=== PATIENT | female | born 1995 | race Caucasian/White ===

== ENCOUNTER 2016-08-16 06:40 | Emergency (ER) | payer BC ==
[~2016-08-16] VITALS: Ht 172.7 cm; Wt 62.1 kg
[2016-08-16 06:44] VITALS: TEMP 37.2; Ht 172.7 cm; Wt 62.1 kg
[2016-08-16] MEDS ORDERED: KETOROLAC TROMETHAMINE 30 MG/ML VIAL IV STA (07:07)
[2016-08-16] MEDS ORDERED: SODIUM CHLORIDE 0.9% 1000ML 1,000 ML IV SCH (07:15)
--- NOTE | 2016-08-16 07:22 | EMERGENCY ROOM VISIT NOTE ---
History First contact with patient: 06:46 Chief Complaint: ILLNESS Stated Complaint: CHEST PAIN,FEVER,THROAT PN,BODY ACHES History of Present Illness The patient is a 21 year old female who presents to the Emergency Room with complaints of chest tightness. Symptoms have been going on for 1 day. The pain is a 5/10 central chest pain with radiation into the anterior neck and jaw. No radiation into the arms or back. The pain is worse with exertion and possibly slight better with rest. It is worsened with coughing and breathing. She also has a productive cough, uncertain if sputum is clear or purulent. She also has sore throat that is worse with swallowing. She is also having some nausea but no vomiting. No diarrhea or constipation. She is urinating without difficulty. Last night she took a temperature of 102.1. She did not take Tylenol or NSAIDs. She notes her appetite has been at baseline until 1 day ago. She denies palpitations. She does have shortness of breath at night. No wheezing. No leg swelling. She is having more shortness of breath with exertion. She has not had any recent periods of immobility. She is not on OCP. She is a non-smoker She did not get her flu shot this year. There are no other sick contacts Review of Systems A 10 point review of systems was negative unless stated above. Past Medical/Surgical History None No previous surgeries Family History No history of cardiac or pulmonary disease in parents Mother and maternal grandmother have hypothyroidism Social History Smoking Status: Never Smoker Smokeless Tobacco Use: No Alcohol Use: occasionally (10 units per week) Drug Use: none Marital Status: single Housing Status: lives with roommate Occupation Status: student Current/Historical Medications Scheduled Amoxicillin (Amoxil), 1 CAP PO BID Allergies Coded Allergies: No Known Allergies (Unverified , 08/16/16) Physical Exam Vital Signs Date Time Temp Pulse Resp B/P Pulse Ox O2 Delivery O2 Flow Rate FiO2 08/16/16 10:17 96 18 104/59 97 08/16/16 10:09 96 08/16/16 09:40 99 18 104/59 97 Room Air 08/16/16 08:19 97 18 102/63 99 Room Air 08/16/16 07:33 102 20 105/60 98 Room Air 08/16/16 06:58 109 08/16/16 06:44 37.2 124 20 114/71 99 Room Air Pain Rating (0-10): 5 Physical Exam Constitutional: Vital signs as above were reviewed. Eyes: Pupils equal, round, and reactive to light. Extraocular muscles are intact. No proptosis. No photophobia. ENT: Mucous membranes are moist. No sinus tenderness. TMs are clear bilaterally. Oropharynx is clear. No lymphadenopathy No trismus No thyroid enlargement Cardiovascular: Heart with a regular rate and rhythm. Pulses are palpable and symmetric in all 4 extremities. No pedal edema appreciated. Chest non-tender to palpation Respiratory: Lungs clear to auscultation bilaterally. No wheezes, rales, or rhonchi appreciated. No accessory muscle use. No retractions. No increased work of breathing. GI: Abdomen soft, nontender, nondistended. Normal active bowel sounds. No abdominal hernias appreciated. No rebound. No guarding. No hepatomegaly or splenomegaly : No CVA tenderness appreciated. Musculoskeletal: No midline cervical or vertebral tenderness. No gross deformities. No bony tenderness. No calf swelling or tenderness. Integumentary: Warm, dry, no rashes appreciated. Neurological: Patient awake, alert, and oriented x 3. Cranial nerves two through 12 grossly intact. Motor 5 out of 5 strength bilateral upper and lower extremities. Lymph: No cervical lymphadenopathy appreciated. Medical Decision & Procedures ER Provider Diagnostic Interpretation: [~ rep ct add3]] CHEST 2 VIEWS ROUTINE CLINICAL HISTORY: shortness of breath chest pain dyspnea COMPARISON STUDY: No previous studies for comparison. FINDINGS: The bones soft tissues and hemidiaphragms are normal. The cardiomediastinal silhouette is normal. The lungs are clear. The pulmonary vasculature is normal. IMPRESSION: Negative chest. Electronically signed by: Gómez De Luna M.D. 08/16/2016 8:34 AM Dictated Date/Time: 08/16/2016 8:32 AM Laboratory Results 08/16/16 07:25 Red Blood Count 4.08, Mean Corpuscular Volume 91.7, Mean Corpuscular Hemoglobin 31.6, Mean Corpuscular Hemoglobin Concent 34.5, Mean Platelet Volume 9.0, Neutrophils (%) (Auto) 95.8, Lymphocytes (%) (Auto) 2.4, Monocytes (%) (Auto) 1.5, Eosinophils (%) (Auto) 0.0, Basophils (%) (Auto) 0.0, Neutrophils # (Auto) 24.01, Lymphocytes # (Auto) 0.59, Monocytes # (Auto) 0.37, Eosinophils # (Auto) 0.00, Basophils # (Auto) 0.01 08/16/16 07:25 Test 08/16/16 07:19 08/16/16 07:25 08/16/16 08:04 08/16/16 08:15 Influenza Type A Antigen Neg for Influ A (NEG) Influenza Type B Antigen Neg for Influ B (NEG) White Blood Count 25.42 K/uL (4.8-10.8) Red Blood Count 4.08 M/uL (4.2-5.4) Hemoglobin 12.9 g/dL (12.0-16.0) Hematocrit 37.4 % (37-47) Mean Corpuscular Volume 91.7 fL (80-100) Mean Corpuscular Hemoglobin 31.6 pg (25-34) Mean Corpuscular Hemoglobin Concent 34.5 g/dl (32-36) Platelet Count 286 K/uL (130-400) Mean Platelet Volume 9.0 fL (7.4-10.4) Neutrophils (%) (Auto) 95.8 % Lymphocytes (%) (Auto) 2.4 % Monocytes (%) (Auto) 1.5 % Eosinophils (%) (Auto) 0.0 % Basophils (%) (Auto) 0.0 % Neutrophils # (Auto) 24.01 K/uL (1.4-6.5) Lymphocytes # (Auto) 0.59 K/uL (1.2-3.4) Monocytes # (Auto) 0.37 K/uL (0.11-0.59) Eosinophils # (Auto) 0.00 K/uL (0-0.5) Basophils # (Auto) 0.01 K/uL (0-0.2) RDW Standard Deviation 43.6 fL (36.4-46.3) RDW Coefficient of Variation 13.0 % (11.5-14.5) Immature Granulocyte % (Auto) 0.3 % Immature Granulocyte # (Auto) 0.08 K/uL (0.00-0.02) Nucleated RBC Absolute Count (auto) 0.00 K/uL (0-0) Nucleated Red Blood Cells % 0.0 % Anion Gap 11.0 mmol/L (3-11) Est Creatinine Clear Calc Drug Dose 96.1 ml/min Estimated GFR () 105.2 Estimated GFR (Non- 90.8 BUN/Creatinine Ratio 18.6 (10-20) Calcium Level 9.1 mg/dl (8.5-10.1) Total Bilirubin 2.2 mg/dl (0.2-1) Direct Bilirubin 0.2 mg/dl (0-0.2) Aspartate Amino Transf (AST/SGOT) 21 U/L (15-37) Alanine Aminotransferase (ALT/SGPT) 25 U/L (12-78) Alkaline Phosphatase 86 U/L (45-117) Total Creatine Kinase 201 U/L (26-192) Creatine Kinase MB < 0.5 ng/ml (0.5-3.6) Troponin I < 0.015 ng/ml (0-0.045) Total Protein 7.3 gm/dl (6.4-8.2) Albumin 4.3 gm/dl (3.4-5.0) Monoscreen NEG (NEG) Creatine Kinase MB Ratio (0-3.0) Bedside D-Dimer 157 ng/mlFEU (0-450) Test 08/16/16 09:40 Urine Color YELLOW Urine Appearance CLEAR (CLEAR) Urine pH 5.0 (4.5-7.5) Urine Specific [place] 1.004 (1.000-1.030) Urine Protein NEG (NEG) Urine Glucose (UA) NEG (NEG) Urine Ketones NEG (NEG) Urine Occult Blood NEG (NEG) Urine Nitrite NEG (NEG) Urine Bilirubin NEG (NEG) Urine Urobilinogen NEG (NEG) Urine Leukocyte Esterase NEG (NEG) Medications Administered Medications (Trade) Dose Ordered Sig/[place] Route Start Time Stop Time Status Last Admin Dose Admin Sodium Chloride (Nss 1000ml) 1,000 ml @ 999 mls/hr Q1H1M IV 08/16/16 07:15 08/16/16 11:00 DC 08/16/16 07:31 999 MLS/HR Ketorolac Tromethamine 30 mg 30 mg NOW STAT IV 08/16/16 07:07 08/16/16 07:11 DC 08/16/16 07:31 30 MG Sodium Chloride 1,000 ml @ 999 mls/hr Q1H1M ONCE IV 08/16/16 08:15 08/16/16 09:15 DC 08/16/16 08:29 999 MLS/HR Sodium Chloride (Nss 1000ml) 1,000 ml @ 999 mls/hr Q1H1M ONCE IV 08/16/16 09:45 08/16/16 11:00 DC 08/16/16 09:42 999 MLS/HR ECG Comparison ECG Date: no prior available Change: Sinus tacchycardia, rate 111 No ectopy or pauses No acute ST or T wave changes ED Course 06:50 - Patient evaluated Orders: CBC, BMP, Rapid Strep, Influenza, Monospot 1 L NSS 30 mg IV Toradol 08:00 - Precepted case with Dr. Simon Additional orders: D-dimer, troponin, CK, CKMB and liver function testing 08:15 - Patient re-assessed feeling better 2nd L NSS bolus ordered 09:00 - Labs reviewed; Tbili noted to be 2.2; CPK 202 noted borderline elevated Cardiac enzymes and d-dimer are negative. 09:30 - Reassessed; patient feeling better Spot UA ordered; negative 09:50 - Discussed labs results with patient; patient agreeable to discharge with [facility] follow-up and repeat labs in 2-4 weeks 10:00 - Patient discharged in stable condition Medical Decision A thorough history was obtained, physical examination performed and the EMR was reviewed. The case was reviewed multiple times over with Dr. Dorothea Simon during the patient's ED visit. Patient presents with shortness of breath and chest discomfort with exertion. She is young female so coronary disease is highly unlikely. Fortunately, there were no concerning findings on EKG, cardiac enzymes or chest x-ray to suggest acute cardiac disease as a cause for her symptoms. Given sore throat, she was evaluated for Group A strep. Rapid testing was negative . Monospot was negative though this might be expected given short duration of symptoms. Influenza testing was negative. She did have a leukocytosis at 25. Chest x-ray was normal. Point of care UA was normal. We could not identify a focal source for infection, however, decided on empiric treatment of pharyngitis given the nature of her symptoms. A culture is pending at this time. Patient was treated with 2 L of NSS. She was also treated with IV toradol which did help her discomfort. Interestingly, she was noted to have an isolated elevation of her total bilirubin without elevation in transaminases. The cause is uncertain but we recommend follow-up liver function testing to ensure resolution. She had a borderline CK bump but this may be due to a transient myositis from infection. Again, this should be repeated as an outpatient to trend. Patient was feeling better at discharge. She was given instructions to see [facility] tomorrow and have Liver function and CK repeated in 2-4. Patient was discharged in stable condition. Impression Primary Impression: Exudative pharyngitis Additional Impressions: Total bilirubin, elevated Elevated CK Ruled Out: Pneumonia Departure Information Dispostion Home / Self-Care Condition GOOD Prescriptions Amoxicillin (AMOXIL) 500 Mg Cap 1 CAP PO BID for 10 Days, #20 CAP Prov: Agustín Marrufo MD 08/16/16 Referrals No Doctor, Assigned (PCP) Patient Instructions My [facility] Additional Instructions You came with fevers sore throat and chest tightness. You labs work shows that you do have an infection. We checked a strep test on you which was negative but we will confirm this and treat you presumtively until we have a definitive result. You will be treated with Amoxicillin for 7- 10 days. Your chest x-ray was negative for pneumonia. We checked a test for influenza and mono and these were negative. Your liver function shows that you have a high bilirubin and creatinine kinase. This is likely going to resolve one you get better but you should ask S to repeat labs on you in the coming 2-4 weeks. Otherwise, we treated you with anti-inflammatories and fluids and you felt much better. As such we feel you can safely be discharged home. If your symptoms fail to improve, acutely worsen, please seek medical attention immediately by either calling your primary care provider or going to your nearest emergency department. Otherwise, please see [facility] tomorrow to ensure that you continue to get better. It was a pleasure to be involved in your care and we wish you all the best. Problem Qualifiers
[2016-08-16 07:48] LABS: HEMATOCRIT 37.4 % (37-47); MEAN CELL VOLUME 91.7 fL (80-100); MEAN CORPUSCULAR HEMOGLOBIN 31.6 pg (25-34); MEAN CORPUSCULAR HGB CONC 34.5 g/dl (32-36); PLATELET COUNT 286 K/uL (130-400); RED BLOOD COUNT 4.08 M/uL (4.2-5.4); WHITE BLOOD COUNT 25.42 K/uL (4.8-10.8)
[2016-08-16 07:55] LABS: BLOOD UREA NITROGEN 17 mg/dl (7-18); BUN/CREATININE RATIO 18.6 (10-20); CALCIUM 9.1 mg/dl (8.5-10.1); CARBON DIOXIDE 24 mmol/L (21-32); CHLORIDE 103 mmol/L (98-107); GLUCOSE 133 mg/dl (70-99); POTASSIUM 3.8 mmol/L (3.5-5.1); SODIUM 138 mmol/L (136-145)
[2016-08-16] MEDS: SODIUM CHLORIDE 0.9% 1000ML 1,000 ML IV ONE ×2 (08:15→08:29)
[2016-08-16 08:33] LABS: BASO ABS # 0.01 K/uL (0-0.2); IG% 0.3 %; LYMPH % 2.4 %; LYMPH ABS # 0.59 K/uL (1.2-3.4); MONO % 1.5 %; NEUT % 95.8 %
--- NOTE | 2016-08-16 08:35 | DIAGNOSTIC IMAGING REPORT ---
CHEST 2 VIEWS ROUTINE CLINICAL HISTORY: shortness of breath chest pain dyspnea COMPARISON STUDY: No previous studies for comparison. FINDINGS: The bones soft tissues and hemidiaphragms are normal. The cardiomediastinal silhouette is normal. The lungs are clear. The pulmonary vasculature is normal. IMPRESSION: Negative chest. Electronically signed by: Gómez De Luna M.D. 08/16/2016 8:34 AM Dictated Date/Time: 08/16/2016 8:32 AM
[2016-08-16 08:40] LABS: ALKALINE PHOSPHATASE 86 U/L (45-117); ALT/SGPT 25 U/L (12-78); AST/SGOT 21 U/L (15-37)
[2016-08-16 09:12] LABS: COMPLETE YES
[2016-08-16] MEDS ORDERED: SODIUM CHLORIDE 0.9% 1000ML 1,000 ML IV ONE (09:45)
[2016-08-16 09:59] LABS: URINE APPEARANCE CLEAR (CLEAR); URINE BILIRUBIN NEG (NEG); URINE COLOR YELLOW; URINE NITRITE NEG (NEG); URINE SPECIFIC GRAVITY 1.004 (1.000-1.030); UROBILINOGEN NEG (NEG); ZZUR CULT IF INDIC CLEAN CATCH NO
[2016-08-16 10:00] LABS: MANUAL MICROSCOPIC REQUIRED? NO; REVIEW REQ? NO
[2016-08-16] MEDS ORDERED: AMOX500C3 PO (10:00)
[2016-08-16 10:17] VITALS: BP 104/59; PULSE 96; O2SAT 97
--- NOTE | 2016-08-16 17:42 | EMERGENCY ROOM VISIT NOTE ---
ED Visit Note First contact with patient: 06:46 Resident Physician Supervision Note: I interviewed and examined the patient. Discussed with Dr. Marrufo and agree with findings and plan as documented in the note. Any exceptions or clarifications are listed here: This patient was evaluated and appeared to be in no distress. She is noted to be slightly tachycardic but had improvement after IV hydration. Patient's rapid strep is negative. She is noted to have a leukocytosis of 25,000. As the patient reports a fever and sore throat, I do suspect strep pharyngitis is likely. Formal culture is pending. She will be placed on amoxicillin. Please refer to Dr. Marrufo's notes for further details of the history, physical and visit. Documented By: Dorothea Simon
== END 2016-08-16 10:18 | disposition home or self-care (01) ==
LOC: C.EDB 06:43
DX: J02.9 Acute pharyngitis, unspecified (principal); R79.89 Other specified abnormal findings of blood chemistry; R07.89 Other chest pain